=== PATIENT | male | born 1970 | race African-American/Black ===

== ENCOUNTER 2019-02-04 16:56 | Emergency (ER) | payer MEDICARE, MEDICAID ==
[~2019-02-04] VITALS: Ht 195.6 cm; Wt 91.4 kg
[2019-02-04] MEDS ORDERED: LIDOCAINE-MPF 1%, 5ML INFIL ONE (18:00)
[2019-02-04] MEDS ORDERED: LIDOCAINE-MPF 1%, 5ML ONE (18:09)
[2019-02-04 18:10] VITALS: BP 136/87
--- NOTE | 2019-02-04 18:45 | NUR ---
Discharge instructions discussed with patient including when to return to emergency department, patient verbalizes understanding. Prescription provided to patient with instruction for use, patient verbalizes understanding. Patient dresses independently, ambulates independently with steady gait.
== END 2019-02-04 18:48 | disposition home or self-care (01) ==
LOC: ED 18:42
DX: L02.214 Cutaneous abscess of groin (principal); I25.10 Atherosclerotic heart disease of native coronary artery without angina pectoris; I25.2 Old myocardial infarction
CPT/HCPCS: 10060; 99283

== ENCOUNTER 2019-03-09 08:26 | Emergency (ER) | payer MEDICARE, MEDICAID ==
[~2019-03-09] VITALS: Ht 195.6 cm; Wt 92.0 kg
--- NOTE | 2019-03-09 08:53 | NUR ---
PT AMBULATORY WITH STEADY GAIT TO ROOM FROM TRIAGE AT THIS TIME.
--- NOTE | 2019-03-09 09:01 | NUR ---
PT STATES HE IS HERE FOR RECTAL BLEEDING. STATES THE NURSE WHO COMES TO CLEAN HIS HOUSE ASKED IF HE WAS BLEEDING BECAUSE THERE WAS BLOOD ON THE TOILET SEAT. 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 PT STATES HE IS HAVING ABDOMINAL PAIN, "LIKE SOMEONE CUT ME FROM THE INSIDE." PAIN IS 8/10 AT THIS TIME. STATES IT IS IN A LINE THAT GOES FROM EPIGASTRIC AREA TO UMBILICUS. TENDER TO PALPATION. WHEN ASKED FOR A URINE SAMPLE PT STATES HE ONLY VOIDS ONCE A WEEK AND WOULD BE UNABLE TO PROVIDE ONE AT THIS TIME. VSS. PT RESTING [facility].
--- NOTE | 2019-03-09 09:04 | NUR ---
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 STATES HE WAS GOING TO SEE HIS DOCTOR TODAY FOR PLACEMENT OF NEW FISTULA. PT HAS DIALYSIS CATHETER PRESENT ON LEFT SIDE OF CHEST.
[2019-03-09 09:20] LABS: BASOPHILS # (AUTO) 0.06 x10^3/uL (0-0.1); BASOPHILS % (AUTO) 1 % (0-1); EOSINOPHILS # (AUTO) 0.01 x10^3/uL (0-0.4); EOSINOPHILS % (AUTO) 0 % (1-7); LYMPHOCYTES % (AUTO) 20 % (22-44); MD NO; MEAN CORPUSCULAR HEMOGLOBIN 29.3 pg (27.5-34.5); MEAN CORPUSCULAR HGB CONC 32.6 g/dL (33.2-36.2); MEAN CORPUSCULAR VOLUME 89.8 fL (81-97); MEAN PLATELET VOLUME 7.8 fL (7.4-10.4); MONOCYTES # (AUTO) 0.76 x10^3/uL (0.2-0.8); MONOCYTES % (AUTO) 15 % (2-9); NEUTROPHILS # (AUTO) 3.18 x10^3/uL (1.8-6.8); NEUTROPHILS % (AUTO) 63 % (42-75); PLATELET COUNT 140 x10^3/uL (130-400); RED BLOOD COUNT 4.37 x10^6/uL (4.38-5.82)
[2019-03-09] MEDS ORDERED: MORPHINE SULFATE 4 MG/ML, 1ML IVPush PRN (09:30)
[2019-03-09 09:38] LABS: ALBUMIN 3.7 g/dL (3.4-5.0); ANION GAP 17 mmol/L (5-15); CALCIUM 8.9 mg/dL (8.5-10.1); CHLORIDE 86 mmol/L (98-107)
[2019-03-09] MEDS ORDERED: MORPHINE SULFATE 4 MG/ML, 1ML ONE (09:46)
--- NOTE | 2019-03-09 10:15 | NUR ---
CT WAITING FOR IV ACCESS
[2019-03-09 10:16] LABS: ALBUMIN 3.8 g/dL (3.4-5.0)
--- NOTE | 2019-03-09 10:20 | NUR ---
DIALYSIS CATHETER DRESSING PLACED AT THIS TIME. PIV ATTEMPTEDX2. ATTEMPTING AGAIN NOW. PT IN PAIN, RESTING ON GURNEY. NADN. VSS. CALL LIGHT IN REACH. DENIES NEEDS.
[2019-03-09 10:22] LABS: BILIRUBIN, DIRECT 0.2 mg/dL (0.1-0.2); BILIRUBIN,INDIRECT 0.4 mg/dL (0.0-2.0); BILIRUBIN,TOTAL 0.6 mg/dL (0.2-1.0)
--- NOTE | 2019-03-09 10:45 | NUR ---
PT MEDICATED PER EMAR. TAKEN TO CT AT THIS TIME.
[2019-03-09] MEDS ORDERED: OMNIPAQUE 350 MG/ML, 100ML BOTTLE ONE (11:08)
--- NOTE | 2019-03-09 11:08 | NUR ---
PT BACK FROM CT AT THIS TIME. VSS. BENSONN. RESTING ON GURNEY. DENIES NEEDS.
--- NOTE | 2019-03-09 11:18 | NUR ---
BLADDER SCAN SHOWED 0CC AT THIS TIME. PT DENIES NEEDS. NADN. VSS.
[2019-03-09 11:31] VITALS: BP 126/77
--- NOTE | 2019-03-09 11:42 | NUR ---
PT RESTING IN BED ON HIS PHONE. NADN. JUAN. DENIES NEEDS.
== END 2019-03-09 12:55 | disposition home or self-care (01) ==
LOC: ED 09:24
DX: K62.5 Hemorrhage of anus and rectum (principal); K64.8 Other hemorrhoids; R53.1 Weakness; R11.2 Nausea with vomiting, unspecified; I25.2 Old myocardial infarction; I25.10 Atherosclerotic heart disease of native coronary artery without angina pectoris
CPT/HCPCS: 36415; 74177; 80048; 80076; 82040; 85025; 93005; 96374; 99284; J2270; Q9967

== ENCOUNTER 2019-03-13 11:51 | Emergency (ER) | payer MEDICARE, MEDICAID ==
[~2019-03-13] VITALS: Ht 195.6 cm; Wt 93.0 kg
[2019-03-13] MEDS ORDERED: KETOROLAC 30 MG/1 ML IM ONE (12:30)
[2019-03-13] MEDS ORDERED: DIAZEPAM 5 MG TABLET PO ONE (12:30)
[2019-03-13] MEDS ORDERED: KETOROLAC 30 MG/1 ML ONE (12:47)
[2019-03-13] MEDS ORDERED: DIAZEPAM 5 MG TABLET ONE (12:47)
--- NOTE | 2019-03-13 14:01 | NUR ---
XRAY RESULTS BACK, CHART UP FOR RECHECK. PATIENT LAYING COMFORTABLY IN [place] NADN. PATIENT WILL CALL FAMILY FOR SAFE DC HOME PER PATIENT.
--- NOTE | 2019-03-13 14:57 | NUR ---
TASK RN PROVIDING MEAL BREAK. PT STATES HE FEELS MUCH BETTER. PT DISCHARGED HOME, UNABLE TO GET RIDE. PT LEGALLY BLIND, [employer]AXI V[employer]CHER PROVIDED FOR SAFE RIDE HOME.
[2019-03-13 14:58] VITALS: BP 128/74
== END 2019-03-13 15:00 | disposition home or self-care (01) ==
LOC: ED 13:24
DX: M62.830 Muscle spasm of back (principal); I25.10 Atherosclerotic heart disease of native coronary artery without angina pectoris; I25.2 Old myocardial infarction; Z95.5 Presence of coronary angioplasty implant and graft; Z86.73 Personal history of transient ischemic attack (TIA), and cerebral infarction without residual deficits
CPT/HCPCS: 71046; 72072; 93005; 96372; 99283; J1885

== ENCOUNTER 2019-05-24 06:27 | Day surgery (SDC) | payer MEDICARE, MEDICAID ==
[~2019-05-24] VITALS: Ht 195.6 cm; Wt 93.0 kg
[2019-05-24] MEDS ORDERED: PROTAMINE SULFATE 10 MG/ML, 5ML ONE (06:58)
[2019-05-24] MEDS ORDERED: BUPIVACAINE/PF 0.5% ONE (06:58)
[2019-05-24] MEDS ORDERED: PAPAVERINE 30 MG/ML, 2ML ONE ×2 (06:58→07:19)
[2019-05-24] MEDS ORDERED: BACITRACIN 50,000 UNIT ONE (06:59)
[2019-05-24] MEDS ORDERED: EPINEPHRINE 1 MG/ML, 1ML ONE (06:59)
[2019-05-24] MEDS ORDERED: HEPARIN 1,000 UNITS/ML, 10ML ONE (06:59)
[2019-05-24] MEDS ORDERED: LIDOCAINE 1%, 20ML ONE (06:59)
[2019-05-24] MEDS ORDERED: THROMBIN 5,000 UNIT VIAL TP ONE (06:59)
[2019-05-24 07:21] VITALS: BP 153/100
[2019-05-24] MEDS ORDERED: LACTATED RINGERS 1,000 ML IV SCH (07:21)
[2019-05-24] MEDS ORDERED: SODIUM CHLORIDE 0.9% 1,000 ML IV SCH (07:32)
[2019-05-24] MEDS ORDERED: REGULAR INSULIN SQ (07:38)
[2019-05-24] MEDS ORDERED: ASPI-496 PO (07:38)
[2019-05-24] MEDS ORDERED: INSU100V8 SQ (07:38)
[2019-05-24] MEDS ORDERED: CARV3.122 PO (07:38)
[2019-05-24 07:48] LABS: BASOPHILS # (AUTO) 0.05 x10^3/uL (0-0.1); BASOPHILS % (AUTO) 1 % (0-1); EOSINOPHILS # (AUTO) 0.21 x10^3/uL (0-0.4); EOSINOPHILS % (AUTO) 5 % (1-7); LYMPHOCYTES # (AUTO) 1.63 x10^3/uL (1-3.4); LYMPHOCYTES % (AUTO) 35 % (22-44); MD NO; MEAN CORPUSCULAR HEMOGLOBIN 29.8 pg (27.5-34.5); MEAN CORPUSCULAR HGB CONC 32.9 g/dL (33.2-36.2); MEAN CORPUSCULAR VOLUME 90.3 fL (81-97); MEAN PLATELET VOLUME 7.3 fL (7.4-10.4); MONOCYTES # (AUTO) 0.43 x10^3/uL (0.2-0.8); MONOCYTES % (AUTO) 9 % (2-9); NEUTROPHILS # (AUTO) 2.38 x10^3/uL (1.8-6.8); NEUTROPHILS % (AUTO) 51 % (42-75); PLATELET COUNT 227 x10^3/uL (130-400); RED BLOOD COUNT 3.79 x10^6/uL (4.38-5.82); RED CELL DISTRIBUTION WIDTH 13.5 % (9.4-14.8)
[2019-05-24 07:54] LABS: ANION GAP 9 mmol/L (5-15); CALCIUM 8.5 mg/dL (8.5-10.1); CHLORIDE 102 mmol/L (98-107); CREATININE 9.25 mg/dL (0.7-1.3)
[2019-05-24] MEDS ORDERED: MIDAZOLAM 1 MG/ML, 2ML ONE (08:50)
[2019-05-24] MEDS ORDERED: FENTANYL PF 250 MCG/5ML ONE (08:50)
[2019-05-24] MEDS ORDERED: DEXAMETHASONE 4 MG/ML, 1ML ONE (08:51)
[2019-05-24] MEDS ORDERED: PROPOFOL 10 MG/ML, 20ML ONE (08:54)
[2019-05-24] MEDS ORDERED: EPHEDRINE 50 MG/ML, 1ML ONE (09:18)
[2019-05-24] MEDS ORDERED: CLINDAMYCIN 150 MG/ML, 6ML ONE (09:36)
[2019-05-24] MEDS ORDERED: ONDANSETRON 2MG/ML, 2ML ONE (10:29)
[2019-05-24] MEDS ORDERED: hydrALAzine 20 MG/ML, 1ML IV PRN (11:00)
[2019-05-24] MEDS ORDERED: OXYcodone 5 MG/5 ML ORAL.SOL UDC PO PRN (11:00)
[2019-05-24] MEDS ORDERED: PROMETHAZINE 25 MG/ML, 1ML IV PRN (11:00)
[2019-05-24] MEDS ORDERED: DIAZEPAM 5 MG/ML, 2ML IVPush PRN (11:00)
[2019-05-24] MEDS ORDERED: ONDANSETRON 2MG/ML, 2ML IV PRN (11:00)
[2019-05-24] MEDS ORDERED: PROMETHAZINE 12.5 MG SUPP PR PRN (11:00)
[2019-05-24] MEDS ORDERED: HYDROmorphone 2 MG/ML, 1ML IVPush PRN (11:00)
[2019-05-24] MEDS ORDERED: FENTANYL PF 100 MCG/2ML IV PRN (11:00)
[2019-05-24] MEDS ORDERED: LABETALOL 5MG/ML, 20ML IV PRN (11:00)
[2019-05-24] MEDS ORDERED: HALOPERIDOL 5 MG/ML IV PRN (11:00)
[2019-05-24] MEDS ORDERED: ALBUTEROL SULFATE 2.5 MG/3 ML NPPB PRN (11:00)
[2019-05-24] MEDS ORDERED: ONDANSETRON ODT 8 MG PO PRN (11:00)
[2019-05-24] MEDS ORDERED: EPHEDRINE 50 MG/ML, 1ML IVPush PRN (11:00)
[2019-05-24] MEDS ORDERED: MIDAZOLAM 1 MG/ML, 2ML IV PRN (11:00)
[2019-05-24] MEDS ORDERED: MEPERIDINE/PF 25MG/ML,1ML IVPush PRN (11:00)
== END 2019-05-24 12:15 | disposition home or self-care (01) ==
LOC: OUT 06:27
PROVIDERS: ATTEND Surgery
DX: E11.22 Type 2 diabetes mellitus with diabetic chronic kidney disease (principal); I12.0 Hypertensive chronic kidney disease with stage 5 chronic kidney disease or end stage renal disease; N18.6 End stage renal disease; I25.2 Old myocardial infarction; Z79.84 Long term (current) use of oral hypoglycemic drugs; Z88.0 Allergy status to penicillin; Z88.8 Allergy status to other drugs, medicaments and biological substances; Z86.73 Personal history of transient ischemic attack (TIA), and cerebral infarction without residual deficits; Z95.5 Presence of coronary angioplasty implant and graft
CPT/HCPCS: 01844; 36415; 36821; 80048; 82962; 85025; J0171; J1100; J1644; J2250; J2405; J2704; J2720; J3010; J7030; J2440

== ENCOUNTER → 2020-04-14 | Outpatient (CLI) | payer MEDICARE, MEDICAID ==
[~2020-04-14] MED LIST: ASPI-496 PO; CARV3.122 PO; INSU100V8 SQ; REGULAR INSULIN SQ
== END | disposition home or self-care (01) ==
LOC: STAR 15:05
PROVIDERS: ATTEND Anesthesiology
DX: Z20.828 Contact with and (suspected) exposure to other viral communicable diseases (principal)
CPT/HCPCS: 36415; 87635

== ENCOUNTER 2020-04-25 11:42 | Day surgery (SDC) | payer MEDICARE, MEDICAID ==
[~2020-04-25] VITALS: Ht 195.6 cm; Wt 93.9 kg
[2020-04-25] MEDS ORDERED: CARV12.52 PO (12:15)
[2020-04-25] MEDS ORDERED: SOFO1TAB PO (12:15)
[2020-04-25] MEDS ORDERED: ATOR40TA78 PO (12:15)
[2020-04-25] MEDS ORDERED: TAMS-11 PO (12:15)
[2020-04-25] MEDS ORDERED: LACTATED RINGERS 1,000 ML IV SCH (12:16)
[2020-04-25] MEDS ORDERED: CHLORHEXIDINE 15 ML UDC MM STA (12:16)
[2020-04-25 12:46] VITALS: BP 138/84
[2020-04-25] MEDS ORDERED: SODIUM CHLORIDE 0.9% 1,000 ML IV SCH (12:53)
[2020-04-25 13:10] LABS: BASOPHILS # (AUTO) 0.03 x10^3/uL (0-0.1); BASOPHILS % (AUTO) 1 % (0-1); EOSINOPHILS # (AUTO) 0.14 x10^3/uL (0-0.4); EOSINOPHILS % (AUTO) 3 % (1-7); LYMPHOCYTES # (AUTO) 1.77 x10^3/uL (1-3.4); LYMPHOCYTES % (AUTO) 37 % (22-44); MD NO; MEAN CORPUSCULAR HEMOGLOBIN 29.1 pg (27.5-34.5); MEAN CORPUSCULAR HGB CONC 32.6 g/dL (33.2-36.2); MEAN CORPUSCULAR VOLUME 89.4 fL (81-97); MEAN PLATELET VOLUME 7.3 fL (7.4-10.4); MONOCYTES # (AUTO) 0.47 x10^3/uL (0.2-0.8); MONOCYTES % (AUTO) 10 % (2-9); NEUTROPHILS # (AUTO) 2.41 x10^3/uL (1.8-6.8); NEUTROPHILS % (AUTO) 50 % (42-75); PLATELET COUNT 179 x10^3/uL (130-400); RED BLOOD COUNT 4.63 x10^6/uL (4.38-5.82); RED CELL DISTRIBUTION WIDTH 12.9 % (9.4-14.8)
[2020-04-25 13:19] LABS: ALBUMIN 4.1 g/dL (3.4-5.0); ANION GAP 8 mmol/L (5-15); CALCIUM 9.4 mg/dL (8.5-10.1); CHLORIDE 97 mmol/L (98-107)
[2020-04-25 13:33] LABS: ALANINE AMINOTRANSFERASE 13 U/L (12-78); ALKALINE PHOSPHATASE 70 U/L (45-117); BILIRUBIN,TOTAL 0.7 mg/dL (0.2-1.0); CREATININE 7.94 mg/dL (0.7-1.3)
[2020-04-25 13:38] LABS: INTERNATIONAL NORMALIZED RATIO 1.05 (0.93-1.1); PROTHROMBIN TIME 10.8 Seconds (9.6-11.5)
[2020-04-25] MEDS ORDERED: PROPOFOL 10 MG/ML, 20ML ONE ×3 (14:18)
== END 2020-04-25 15:50 | disposition home or self-care (01) ==
LOC: OUT 11:42
PROVIDERS: ATTEND Internal Medicine
DX: K92.1 Melena (principal); Z20.828 Contact with and (suspected) exposure to other viral communicable diseases; K63.5 Polyp of colon; K63.89 Other specified diseases of intestine; K64.1 Second degree hemorrhoids; I25.10 Atherosclerotic heart disease of native coronary artery without angina pectoris; I12.0 Hypertensive chronic kidney disease with stage 5 chronic kidney disease or end stage renal disease; E11.22 Type 2 diabetes mellitus with diabetic chronic kidney disease; N18.6 End stage renal disease; Z88.0 Allergy status to penicillin; Z88.8 Allergy status to other drugs, medicaments and biological substances; Z86.73 Personal history of transient ischemic attack (TIA), and cerebral infarction without residual deficits; Z95.818 Presence of other cardiac implants and grafts; Z79.82 Long term (current) use of aspirin; Z79.4 Long term (current) use of insulin
CPT/HCPCS: 36415; 45380; 80053; 85025; 85610; 87635; 88305; 93005; J2704